=== PATIENT | female | born 1955 | race Caucasian/White ===

== ENCOUNTER 2018-05-05 08:22 | Inpatient (IN) ==
--- NOTE | 2018-04-16 10:10 | ANES ---
Anesthesia Pre Procedure Eval HOME MEDICATIONS Omeprazole [Prilosec Generic] 20 mg PO DAILY 02/10/13 [Last Taken Unknown] aspirin 81 mg tablet,delayed release 81 mg PO DAILY 04/09/18 [Last Taken Unknown ] levothyroxine 125 mcg tablet 125 mcg PO DAILY 04/09/18 [Last Taken Unknown] naproxen sodium 220 mg tablet 220 mg PO DAILY 04/09/18 [Last Taken Unknown] triamcinolone acetonide 0.1 % dental paste 1 applic DT TID PRN 04/09/18 [Last Taken Unknown] hydrochlorothiazide 25 mg tablet 25 mg PO DAILY 04/15/18 [Last Taken Unknown] Allergies/Adverse Reactions: Allergies Allergy/AdvReac Type Severity Reaction Status Date / Time Penicillins Allergy Unknown Verified 04/16/18 09:18 - Planned Procedure Planned Procedure: Left Arthroplasty Total Knee Medication List Reviewed:: Yes Allergies Verified: Yes Medical History (Last Reviewed 04/16/18 @ 10:05 by Derek Nevarez CRNA) Former tobacco use Hypertension Lives with spouse Rarely consumes alcohol Wears glasses Environmental allergies Onset Date: Unknown GERD (gastroesophageal reflux disease) Onset Date: Unknown Hypothyroidism Onset Date: Unknown Obesity Onset Date: Unknown Surgical History (Last Reviewed 04/16/18 @ 10:05 by Derek Nevarez CRNA) H/O colonoscopy Onset Date: ~2009 History of appendectomy Onset Date: ~1991 History of carpal tunnel release Onset Date: Unknown History of cholecystectomy Onset Date: ~1972 History of total abdominal hysterectomy Onset Date: ~1989 S/P bilateral foot surgery Onset Date: Unknown Family History (Last Reviewed 04/16/18 @ 10:05 by Derek Nevarez CRNA) Father Diabetes Mother Hypertension Polycythemia vera - Family Anesthesia History Family History:: no untoward family reactions to anesthesia, no familial bleeding tendencies, no family history of clotting disorders, no family history of premature - Airway/Neck/Teeth Within Normal Limits:: Yes Teeth Condition: Intact Neck Exam: non-tender, full range of motion, normal alignment Mallampatti Score: 2 Thyromental (T-M) distance: > 6 cm Mandibulo Hyoid distance: > 3 cm - Respiratory Respiratory: chest non-tender, lungs clear, normal breath sounds, no respiratory distress Smoking Status: Never smoker Sleep Apnea currently treated: No Sleep Apnea by current assessment: Yes - Some symptoms Discussed Risks/Treatment of KAYLIN: Yes - Cardiovascular Patient History - Cardiac/Respiratory: No pertinent hx, Sleep Apnea Tolerates Activity: Fair Heart Sounds: S1 & S2, Regular - Anesthesia Assessment and Plan ASA Class: PS, II Anesthesia Type Plan: Block - Adductor canal block for post op pain relief, Spinal Planned difficult intubation/equipment available: No
[~2018-05-05 08:22] MED LIST: MORPHINE SULFATE 15 MG TABLET.SA PO PRN; ROPIVACAINE HCL/PF 100 MG, EPINEPHrine 0.2 MG, KETOROLAC TROMETHAMINE 30 MG in NORMAL S... IJ PRN; TRANEXAMIC ACID 1,000 MG in NORMAL SALINE 100 ML IV PRN; ceFAZolin SODIUM 1 GM VIAL IV PRN
[2018-05-05] MEDS: RINGER'S SOLUTION,LACTATED 1,000 ML IV PRN ×2 (09:47→11:30)
[2018-05-05] MEDS ORDERED: diphenhydrAMINE HCL 50 MG/ML VIAL IV PRN (12:31)
[2018-05-05] MEDS ORDERED: ACETAMINOPHEN 500 MG TABLET PO PRN (12:31)
[2018-05-05] MEDS ORDERED: MAGNESIUM HYDROXIDE 30 ML UDC PO PRN (12:31)
[2018-05-05] MEDS ORDERED: MORPHINE SULFATE 2 MG/ML DISP.SYRIN IV PRN (12:31)
[2018-05-05] MEDS ORDERED: MAG HYDROX/ALUMINUM HYD/SIMETH 30 ML UDC PO PRN (12:31)
[2018-05-05] MEDS ORDERED: ZOLPIDEM TARTRATE 5 MG TABLET PO PRN (12:31)
[2018-05-05] MEDS ORDERED: DEXTROSE 5%-LACTATED RINGERS 1,000 ML IV PRN (12:31)
--- NOTE | 2018-05-05 12:31 | OR ---
Operative Report - Dictated Report Narrative: Date: 05/05/2018 Preoperative diagnosis: Left Knee degenerative joint disease. Postoperative diagnosis: Left Knee degenerative joint disease. Procedure: Left Total knee arthroplasty. Surgeon: Harry Liu M.D. Typewriter Ribbon Winder: Yannick Ascencio PA-C Anesthesia: Spinal with regional block and local periarticular joint injection. Complications: None Specimens: Bone for disposal. Estimated blood loss: Minimal. Tourniquet time: 78 Minutes at 325 millimeters of mercury. Retained implants: Depuy Attune size 4 narrow left lugged cemented posterior stabilized femoral component. Size 4 fixed-bearing cemented tibial platform. 4 by 5 millimeter posterior stabilized cross-linked tibial insert. 35 millimeter medialized patella button. Indications: Mrs. Walters is a 62-year-old female who has had long-standing left knee pain and arthrosis. This patient was followed in my clinic for period of time with significant complaints of left knee pain consistent with arthritic changes. She had failed conservative measures including, but not limited to, activity modification, passage of time, medications, and other conservative measures. Patient wished to proceed with surgical treatment. The risks, benefits, and alternatives were discussed in clinic. The risks of , blood clots, bleeding, infection, nerve/tendon blood vessel/ injury, malposition of components, intraoperative fracture, postoperative limited range of motion, persistent pain, failure of components, and need for additional procedures. Patient wished to proceed consent was obtained after answering all questions. Procedure: After marking the correct extremity on the floor, the patient was taken to the operating room. A timeout was performed. IV antibiotics consisting of Ancef were administered prior to the procedure. A regional followed by spinal anesthetic was induced by anesthesia, per my request, on the operative table with all bony prominences well-padded. Xiong catheter was placed, and a bump was placed under the operative side buttock. SCDs and CHUY hose were utilized on the nonoperative leg. A well-padded tourniquet was applied to the operative thigh. The operative leg was then pre-scrubbed with alcohol prepped, and draped in a standard sterile fashion. After exsanguinating the extremity with an Esmarch bandage, the tourniquet was inflated. After marking out the anterior knee for standard incision centered over the patella, the skin was incised and dissected down to the joint retinaculum. The joint retinaculum was marked out as well as the horizontal axis of the patella, and a standard medial parapatellar arthrotomy was then made. The most proximal aspect of the quadriceps tendon and the patella tendon insertion were protected from release. A partial synovectomy was performed as well as a resection of the infrapatellar fat pad. The distal femoral fat pad proximal to the trochlea was also resected using cautery. The soft tissues were elevated off the medial aspect of the proximal tibia using a Coto elevator ensuring that we did not transect the medial collateral ligament. Upon initial evaluation range of motion was approximately 0 degrees to 125 degrees of flexion. There were signs of advanced arthrosis in the medial and patellofemoral greater than lateral joint spaces. There were large marginal osteophytes which were removed with a rongeur. The knee was hyperflexed and the patella was tucked laterally. Protecting the surrounding soft tissues with Homans, an entry drill was placed down the femoral canal using Whitesides line for guidance into the entry point. The intramedullary femoral alignment marco was utilized in order to cut the distal femur in 5 degrees of valgus resecting 10 millimeters of bone. Next the distal femur was sized to a size 4. A posterior referencing guide was utilized to place the distal femoral cutting block in 3 degrees of external rotation. This was pinned into place. The rotation was confirmed both visually and based on anatomic landmarks. The 4 in 1 cutting jig of the appropriate size was utilized in order to make all bony cuts. The angle wing was used to ensure no notching. Retractors were utilized in order to protect surrounding soft tissues. This cut did not result in any excessive notching. We then cut the box centered over the distal femur. This allowed for resection of the anterior and posterior cruciate ligaments. I then turned my attention to the preparation of the tibia. Using an extra medullary tibial alignment marco, 4 millimeters of bone was resected off the medial articular surface. This was made perpendicular to the mechanical axis of the joint with the alignment marco centered over the ankle mortise. The alignment marco was checked and was noted to be parallel to the mechanical axis, centered over the medial one third of the tibial tubercle, paralleling the anterior surface of the tibia. We then turned our attention to the remaining meniscus and soft tissues. These were removed while protecting the surrounding ligaments and soft tissues. The marginal osteophytes off the anterior, posterior, medial, lateral aspects of the femur and tibia were removed. The tibia was sized out to a size 4. Next the tibia was drilled and punched in an externally rotated position. Next the trial femur and a series of tibial inserts were utilized in order to allow for full extension and maximal flexion. It was found that a 5 millimeter insert gave the best range of motion and stability at multiple flexion points as well as at full extension there was less than 2 mm of gapping both medially and laterally. There is minimal anterior translation with the knee at 90 degrees of flexion and no signs of being able to dislocate the knee. The patella was then prepared. The initial thickness was 22 millimeters. This was reamed down to 12 millimeters parallel to the anterior surface of the patella. It was sized out to a size 35 medialized patella button. This was then drilled and trialed. Without any medial restraint the patella tracked appropriately and did not sublux or dislocate. At this point, it was felt these were the appropriate sized implants, and all trials were removed. The standard periarticular joint injection consisting of ropivacaine, Toradol, and epinephrine were injected into the periarticular joint tissues. The bony surfaces were thoroughly irrigated with a pulsatile- suction saline irrigation device. A bone plug from the prior resected anterior chamfer cut was placed into the drill hole at the distal femur. The bony surfaces were then dried in preparation for placement of the implants. The cement was vacuum mixed per the sonar technician's instructions. The cement was placed on the dry bony surfaces and posterior aspect of the implants. The implants were impacted into place, removing all extruded cement. At this point anesthesia administered tranexamic acid per protocol intravenously. The knee was placed in extension with axial loading with the trial insert while the cement cured. Once the cement cured, all remaining extruded cement was removed. The knee was placed through a range of motion with the trial insert to ensure appropriate range of motion and stability. Final range of motion was approximately 0 to 125 degrees. The knee was again thoroughly irrigated with pulsatile saline lavage. The final polyethylene insert was then impacted into place ensuring no retained soft tissues. The remaining periarticular joint injection was injected. A medium Hemovac drain was placed exiting superior laterally. The knee was then placed over a triangle and the arthrotomy was closed with interrupted #1 Vicryl after thoroughly irrigating the joint. The deep and subcutaneous tissues were closed with interrupted 0 and 3-0 Vicryl respectively. Skin was closed with a running subcutaneous 3-0 Monocryl and Prineo Dermabond dressing. 4 x 4's, Sof-Rol, and a full leg Kevin wrap were applied. All sponge, needle, blade, and instrument counts were correct prior to closing the wounds. Postoperative condition: The patient was awoken and transferred to the postanesthesia care unit in stable condition. Plan is to be admitted to the inpatient medical/surgical floor postoperatively for 24 hours of IV antibiotics , physical therapy, occupational therapy, and medical comanagement. Patient will be weightbearing as tolerated with range of motion as tolerated. DVT prophylaxis will be with SCDs, CHUY hose, and pharmacological anticoagulation. Anticipated hospital stay is approximately 1-3 days.
[2018-05-05] MEDS ORDERED: TRIAMCINOLONE ACETONIDE 5 APPL TUBE DT PRN (12:33)
--- NOTE | 2018-05-05 12:53 | ANES ---
Post Anesthesia Discharge - Transfer of Care Transfer of Care handoff given to nurse: Yes - Discharge from PACU Discharge from PACU when meets criteria: Yes - Discharge to ASU Discharge to ASU-no complications/pt stable: Yes
--- NOTE | 2018-05-05 12:55 | ANES ---
Anesthesia Procedure Note Procedure Note: ANESTHESIA PROCEDURE NOTE Date of Procedure: 05/05/2018. Time of procedure: 1040. Performed by: Duncan Núñez CRNA Silk Screen Operator: None. Preprocedure diagnosis: Left knee degenerative joint disease. Post procedure diagnosis: Same. Procedure: Left ultrasound guided adductor canal block for postoperative analgesia. Indications: The patient is a 62 -year-old female, requesting left ultrasound- guided at her [facility] block for postoperative analgesia related to right total knee arthroplasty. Findings: See below. Details of the procedure: The tissue over the intended target site was cleansed with ChloraPrepand draped in a sterile fashion. 2 ml Lidocaine 1 % was infiltrated to the skin and subcutaneous tissue at the intended target site. Under sterile technique and ultrasound guidance a 18-gauge Tuohy needle was inserted through the left sartorius muscle to the saphenous nerve just anterior and medial to the superficial femoral artery and vein. 15 mL's of 0.5% bupivacaine was injected after negative aspiration for blood. Needle tip and spread of local anesthetic surrounding the saphenous nerve was observed throughout the injection with real time ultrasound visualization. The Tuohy needle was then removed intact. No complications were noted. The images were retained in the Hospital medical database . EBL: Minimal. Fluids: N/A. Specimen: N/A. Post procedure condition: The patient tolerated the procedure well. No complications were noted. Thank you for this consultation. Duncan Núñez CRNA
[2018-05-05] MEDS: ceFAZolin SODIUM 1 GM in DEXTROSE 5 % IN WATER 50 ML IV SCH ×4 (13:35→20:41)
[2018-05-05] MEDS: KETOROLAC TROMETHAMINE 15 MG/ML VIAL IV SCH ×2 (13:35→18:38)
--- NOTE | 2018-05-05 13:41 | ANES ---
Post Anesthesia Assessment - Vital Signs Vitals: Last Vital Signs Temp 36.5 C 05/05/18 13:10 Pulse 85 05/05/18 13:10 Resp 18 05/05/18 13:10 BP 117/53 05/05/18 13:10 Pulse Ox 98 05/05/18 13:10 Airway Patency: Normal - Mental Status Level Of Consciousness: Awake - Pain Level Pain Score: 0 - N/V Assessment Nausea/Vomiting Presence: None Dehydration:: No
[2018-05-05] MEDS: MORPHINE SULFATE 15 MG TABLET.SA PO SCH (20:41)
[2018-05-05] MEDS: oxyCODONE HCL/ACETAMINOPHEN 1 TAB TABLET PO PRN (20:57)
[2018-05-05] MEDS ORDERED: SENNOSIDES/DOCUSATE SODIUM 1 TAB TABLET PO SCH (21:00)
[2018-05-06] MEDS: KETOROLAC TROMETHAMINE 15 MG/ML VIAL IV SCH ×3 (00:35→12:10)
[2018-05-06] MEDS: oxyCODONE HCL/ACETAMINOPHEN 1 TAB TABLET PO PRN ×2 (00:59→05:04)
[2018-05-06] MEDS: ceFAZolin SODIUM 1 GM in DEXTROSE 5 % IN WATER 50 ML IV SCH ×2 (02:35)
[2018-05-06 05:19] LABS: Hematocrit 35.7 % (37.0-47.0); Hemoglobin 11.9 gm/dL (12.5-16.0); Mean Cell Volume 91.5 fl (78-100); Mean Corpuscular Hemoglobin 30.5 pg (27-31); Mean Corpuscular Hgb Conc 33.3 g/dl (32-36); Mean Platelet Volume 9.2 fl (8-12.5); Platelet Count 244 K/mm3 (150-450); Red Cell Distribution Width 13.2 % (11.5-14.0); White Blood Count 9.2 K/mm3 (4.0-10.5)
[2018-05-06 05:38] LABS: BUN/Creatinine Ratio 12.5 (9.0-21.6); Calcium * 8.5 mg/dL (7.9-10.9); Carbon Dioxide 29.6 mmol/L (24-32.6); Estimated Creat Clear 61.8; Potassium 3.6 mmol/L (3.4-4.6)
[2018-05-06] MEDS ORDERED: LEVOTHYROXINE SODIUM 125 MCG TABLET PO SCH (07:00)
[2018-05-06] MEDS: ONDANSETRON HCL/PF 2 MG/ML VIAL IV PRN ×2 (08:36→12:39)
[2018-05-06] MEDS ORDERED: PANTOPRAZOLE SODIUM 20 MG TABLET.DR PO SCH (09:00)
[2018-05-06] MEDS ORDERED: HYDROCHLOROTHIAZIDE 25 MG TABLET PO SCH (09:00)
[2018-05-06] MEDS: MORPHINE SULFATE 15 MG TABLET.SA PO SCH (10:18)
[2018-05-06] MEDS ORDERED: ENOXAPARIN SODIUM 40 MG/0.4 ML SYRG SC SCH (11:32)
[2018-05-06] MEDS ORDERED: ACETAMINOPHEN WITH CODEINE 1 EACH TABLET PO PRN (14:33)
--- NOTE | 2018-05-06 15:59 | DS ---
(1) S/P total knee arthroplasty Problem: Acute Qualifiers: Laterality: left Qualified Code(s): Z96.652 - Presence of left artificial knee joint (2) Acute blood loss anemia Problem: Acute (3) HTN (hypertension) Problem: Chronic (4) Hypothyroid Problem: Chronic (5) Obesity Problem: Chronic Qualifiers: Obesity classification: adult class 3 (BMI >= 40) Body mass index: BMI 40.0 -44.9 (6) GERD (gastroesophageal reflux disease) Problem: Chronic Description of Stay: Mrs. Walters was admitted to the floor after undergoing left total knee arthroplasty. Tolerated this well. Was admitted to the floor postoperatively for 24 hours of IV antibiotics, pain control, medical comanagement, and occupational and physical therapy. OT and PT were consulted to assist with activities of daily living and ambulation. Was made weightbearing as tolerated with range of motion as tolerated. Pain was initially controlled with IV regimen. This was transitioned to oral once tolerating a by mouth intake. Was resumed on home diet and medications. Had a Xiong catheter inserted and the operating room which was discontinued on postoperative day 1. A drain was placed intraoperatively into the knee which was discontinued on postoperative day 1. Lovenox SCD and CHUY hose were utilized for DVT prophylaxis. Vital signs remained stable to the hospital course. Serial labs were obtained which showed a final hemoglobin of 11.9 grams. BMP was reviewed and was stable. Physical examination throughout the hospital course showed an extremity that had sensation that was intact to light touch, palpable pulses, a benign wound, motor intact to the toes, ankle, and knee. Knee range of motion was approximately 5 degrees to 70 degrees. Once an oral pain regimen was tolerated and physical therapy goals were met, it was felt that they were stable for discharge to home. Instructions: Continue with weightbearing as tolerated and range of motion as tolerated. It is okay to shower and get the wound wet as long as there is no drainage from the wound. Do not bathe or soak the wound. If there is any drainage from the wound keep the wound clean and dry and cover with dry gauze and tape. Change every 2-3 days as needed if there is any drainage. Cover wound while showering if there is any drainage. Continue with physical therapy. Resume home diet. Report any fever over 101.5 Fahrenheit, uncontrolled pain, increased drainage, foul odor of drainage, new or increased calf pain or shortness of breath, or any other significant complaints. A 325mg dialy aspirin will be started after finishing anticoagulation if not allergic. Continue with CHUY hose on the operative extremity until instructed otherwise. No driving until instructed otherwise. Follow up in approximately 10-14 days. Procedures Performed: see notes below List Procedures: Left total knee arthroplasty Results and Findings: Lab Pending Results 05/06/18 05:16: WBC 9.2, RBC 3.90 L, Hgb 11.9 L, Hct 35.7 L, MCV 91.5, MCH 30.5 , MCHC 33.3, RDW 13.2, Plt Count 244, MPV 9.2 05/06/18 05:16: Sodium 135, Plasma Sodium 135, Potassium 3.6, Chloride 102, Carbon Dioxide 29.6, Anion Gap 7.0, BUN 10, Creatinine 0.80, Est GFR (Non-Af Amer) 77, BUN/Creatinine Ratio 12.5, Random Glucose 131 H, Calcium 8.5 Discharge Location: Home Disposition: Home self-care Condition: Good Discharge Activity: Activity as tolerated, Weight bearing Discharge Diet: General/regular food Referrals: Abbie Thompson, [employer] SANDING MACHINE OPERATOR [Family Provider] - Additional Patient Instructions (free text): Physical Therapy outpatient at [facility] rehab on 05/08 at 11:00am Follow up with Dr. Liu Ally05/27 at 10:45am. Prescriptions (Any new or edited meds): Acetaminophen with Codeine [Tylenol-Codeine 300 MG/30 MG] 2 each PO Q4H PRN #60 tablet PRN Reason: Mild Pain (Pain Scale 1-3) Enoxaparin Sodium [Lovenox] 40 mg SC Q24H #7 disp.syrin Morphine Sulfate [Ms Contin] 15 mg PO Q12H #20 tablet.sa Promethazine HCl [Phenergan (Promethazine)] 25 mg PO QID PRN #30 tab PRN Reason: nausea/vomiting Complete Home Medications List: Complete Home Medication List: Omeprazole [Prilosec] 20 mg PO DAILY 02/10/13 levothyroxine 125 mcg tablet 125 mcg PO DAILY 04/09/18 naproxen sodium 220 mg tablet 220 mg PO DAILY 04/09/18 triamcinolone acetonide 0.1 % dental paste 1 applic DT TID PRN 04/09/18 hydrochlorothiazide 25 mg tablet 25 mg PO DAILY 04/15/18 Acetaminophen with Codeine [Tylenol-Codeine 300 MG/30 MG] 2 each PO Q4H PRN #60 tablet 05/06/18 Enoxaparin Sodium [Lovenox] 40 mg SC Q24H #7 disp.syrin 05/06/18 Morphine Sulfate [Ms Contin] 15 mg PO Q12H #20 tablet.sa 05/06/18 Promethazine HCl [Phenergan (Promethazine)] 25 mg PO QID PRN #30 tab 05/06/18 Sennosides/Docusate Sodium [Senokot-S] 2 tab PO HS tablet 05/06/18 Amb Orders for Discharge: PT Evaluation and Treatment* Facility: [facility], Location: Rehabilitation Services
[2018-05-06 16:35] VITALS: BP 140/56
== END 2018-05-06 16:44 | disposition home or self-care (01) | DRG 470 ==
LOC: MS 08:22 → EDSTATUS 10:15
PROVIDERS: ADMIT Orthopaedic Surgery; ATTEND Orthopaedic Surgery
CPT/HCPCS: 36415; 73560; 80048; 85027; 97110; 97116; 97161; 97165; 97530; J2405

== ENCOUNTER 2020-11-28 10:23 | Observation (INO) ==
[~2020-11-28 10:23] MED LIST changes: +RINGER'S SOLUTION,LACTATED 1,000 ML IV PRN; -ROPIVACAINE HCL/PF 100 MG, EPINEPHrine 0.2 MG, KETOROLAC TROMETHAMINE 30 MG in NORMAL S... IJ PRN; +ROPIVACAINE/CLONIDIN/KETOROLAC 50 ML SYRINGE IJ PRN
[2020-11-28] MEDS ORDERED: BUPIVACAINE HCL/EPINEPHRINE 50 ML VIAL IJ ONE (11:09)
[2020-11-28] MEDS ORDERED: PROPOFOL VIAL IV ONE (11:09)
[2020-11-28] MEDS ORDERED: MIDAZOLAM HCL/PF 5 MG/ML VIAL ONE (11:09)
[2020-11-28] MEDS: RINGER'S SOLUTION,LACTATED 1,000 ML IV PRN ×2 (11:11→13:10)
--- NOTE | 2020-11-28 11:34 | ANES ---
Anesthesia Pre Procedure Eval Vitals/Labs: Last Vital Signs Temp 37.3 C 11/28/20 10:30 Pulse 81 11/28/20 10:30 Resp 18 11/28/20 10:30 BP 162/70 H 11/28/20 10:30 Pulse Ox 100 11/28/20 10:30 HOME MEDICATIONS aspirin 81 mg tablet,delayed release 81 mg PO DAILY 06/17/18 [Last Taken 05/20/19 06:00] hydrochlorothiazide 25 mg tablet 25 mg PO DAILY #90 tab 09/05/20 [Last Taken 11/28/20 08:00] levothyroxine 112 mcg tablet 112 mcg PO DAILY #90 tab 09/05/20 [Last Taken Unknown] metformin 500 mg tablet 500 mg PO DAILY #90 tab 09/05/20 [Last Taken Unknown] omeprazole 20 mg tablet,delayed release 20 mg PO DAILY #90 tab 09/05/20 [Last Taken Unknown] potassium chloride 10 mEq capsule,extended release 10 meq PO DAILY #90 cap 09/12/20 [Last Taken Unknown] glucosamine sulfate 1,000 mg capsule 2,000 mg PO DAILY cap 11/03/20 [Last Taken Unknown] Allergies/Adverse Reactions: Allergies Allergy/AdvReac Type Severity Reaction Status Date / Time Penicillins Allergy Unknown rash Verified 11/28/20 10:43 - Planned Procedure Planned Procedure: RT Arthroplasty Total Knee Medication List Reviewed:: Yes Allergies Verified: Yes Medical History (Last Reviewed 11/28/20 @ 11:32 by Derek Nevarez CRNA) HTN (hypertension) (Chronic) Hypothyroid (Chronic) Obesity (Chronic) GERD (gastroesophageal reflux disease) (Chronic) Former tobacco use quit at age 28 Hypertension Lives with spouse Rarely consumes alcohol Wears glasses Environmental allergies Onset Date: Unknown GERD (gastroesophageal reflux disease) Onset Date: Unknown Hypothyroidism Onset Date: Unknown Obesity Onset Date: Unknown Surgical History (Last Reviewed 11/28/20 @ 11:32 by Derek Nevarez CRNA) S/P total knee arthroplasty (Chronic) Left 05/05/18 [place] S/P right knee arthroscopy Onset Date: 05/27/19 partial medial and lateral meniscectomy, chondroplasty medial femoral condyle Status post left knee replacement Onset Date: 04/2018 H/O colonoscopy Onset Date: ~2009 Within normal limits History of appendectomy Onset Date: ~1991 History of carpal tunnel release Onset Date: Unknown Bilateral History of cholecystectomy Onset Date: ~1972 History of total abdominal hysterectomy Onset Date: ~1989 uterus removed only S/P bilateral foot surgery Onset Date: Unknown Family History (Last Reviewed 11/28/20 @ 11:32 by Derek Nevarez CRNA) Father , age 62 Diabetes Mother Polycythemia vera Hypertension Sister Alive and well - Family Anesthesia History Family History:: no untoward family reactions to anesthesia, no familial bleeding tendencies, no family history of clotting disorders, no family history of premature - Airway/Neck/Teeth Within Normal Limits:: Yes Teeth Condition: intact Neck Exam: full range of motion Mallampatti Score: 2 - Respiratory Respiratory Physical: lungs clear Smoking Status: Former smoker Sleep Apnea currently treated: No Sleep Apnea by current assessment: No - Cardiovascular Cardiac History: hypertension Tolerate Activity: Fair Heart Sounds: S1 & S2, Regular - Gastrointestinal NPO since: 0 - Anesthesia Assessment and Plan ASA Class: PS, II Anesthesia Type Plan: Block - Adductor canal block for post op pain relief, Spinal
[2020-11-28] MEDS ORDERED: ROPIVACAINE/CLONIDIN/KETOROLAC 50 ML SYRINGE IJ ONE (12:18)
[2020-11-28] MEDS ORDERED: ceFAZolin SODIUM 1 GM VIAL ONE (12:18)
[2020-11-28] MEDS ORDERED: MAGNESIUM HYDROXIDE 30 ML UDC PO PRN (13:49)
[2020-11-28] MEDS ORDERED: ACETAMINOPHEN 500 MG TABLET PO PRN (13:49)
[2020-11-28] MEDS ORDERED: ONDANSETRON HCL/PF 2 MG/ML VIAL IV PRN (13:49)
[2020-11-28] MEDS ORDERED: diphenhydrAMINE HCL 50 MG/ML VIAL IV PRN (13:49)
[2020-11-28] MEDS ORDERED: ZOLPIDEM TARTRATE 5 MG TABLET PO PRN (13:49)
[2020-11-28] MEDS ORDERED: MORPHINE SULFATE 2 MG/ML DISP.SYRIN IV PRN (13:49)
[2020-11-28] MEDS ORDERED: MAG HYDROX/ALUMINUM HYD/SIMETH 30 ML UDC PO PRN (13:49)
[2020-11-28] MEDS ORDERED: oxyCODONE HCL/ACETAMINOPHEN 1 TAB TABLET PO PRN (13:49)
[2020-11-28] MEDS ORDERED: DEXTROSE 5%-LACTATED RINGERS 1,000 ML IV PRN (13:49)
--- NOTE | 2020-11-28 13:49 | OR ---
Operative Report - Dictated Report Narrative: Date: 11/28/2020 Preoperative diagnosis: Left knee degenerative joint disease. Postoperative diagnosis: Left knee degenerative joint disease. Procedure: Left total knee arthroplasty. Surgeon: Harry Liu M.D. Fisher Trot Line: Yannick Ascencio PA-C (provided and essential set of skilled, educated hands that assisted with transfer, positioning, prepping, draping, manipulation, retraction, placement of jigs, injection, insertion of implants, irrigation, closure wounds, and dressings all of which could not be performed by the available surgical crew) Anesthesia: Spinal with regional block and local periarticular joint injection. Complications: None Specimens: Bone. Estimated blood loss: Minimal. Tourniquet time: 80 minutes at 350 millimeters of mercury. Retained implants: Depuy Attune size 4 left lugged cemented posterior stabilized femoral component. Size 4 fixed-bearing cemented tibial platform. 4 by 5 millimeter posterior stabilized cross-linked tibial insert. 35 millimeter medialized patella button. Indications: Mrs. Walters is a 65-year-old female who has had longstanding left knee pain and arthrosis. This patient was followed in my clinic for period of time with significant complaints of left knee pain consistent with arthritic changes. She had failed conservative measures including, but not limited to, activity modification, passage of time, medications, and other conservative measures. Patient wished to proceed with surgical treatment. The risks, benefits, and alternatives were discussed in clinic. The risks of , blood clots, bleeding, infection, nerve/tendon blood vessel/ injury, malposition of components, intraoperative fracture, postoperative limited range of motion, persistent pain, failure of components, and need for additional procedures. Patient wished to proceed consent was obtained after answering all questions. Procedure: After marking the correct extremity on the floor, the patient was taken to the operating room. A timeout was performed. IV antibiotics consisting of Ancef were administered prior to the procedure. A regional followed by spinal anesthetic was induced by anesthesia, per my request, on the operative table with all bony prominences well-padded. Xiong catheter was placed, and a bump was placed under the operative side buttock. SCDs and CHUY hose were utilized on the nonoperative leg. A well-padded tourniquet was applied to the operative thigh. The operative leg was then pre-scrubbed with alcohol, prepped, and draped in a standard sterile fashion. After exsanguinating the extremity with an Esmarch bandage, the tourniquet was inflated. After marking out the anterior knee for standard incision centered over the patella, the skin was incised and dissected down to the joint retinaculum. The joint retinaculum was marked out as well as the horizontal axis of the patella, and a standard medial parapatellar arthrotomy was then made. The most proximal aspect of the quadriceps tendon and the patella tendon insertion were protected from release. A partial synovectomy was performed as well as a resection of the infrapatellar fat pad. The distal femoral fat pad proximal to the trochlea was also resected using cautery. The soft tissues were elevated off the medial aspect of the proximal tibia using a Coto elevator ensuring that we did not transect the medial collateral ligament. Upon initial evaluation range of motion was approximately 0 degrees to 120 degrees of flexion. There were signs of advanced arthrosis in the medial and patellofemoral greater than lateral joint spaces. There were large marginal osteophytes which were removed with a rongeur. The knee was hyperflexed and the patella was tucked laterally. Protecting the surrounding soft tissues with Homans, an entry drill was placed down the femoral canal using Whitesides line for guidance into the entry point. The intramedullary femoral alignment marco was utilized in order to cut the distal femur in 5 degrees of valgus resecting 10 millimeters of bone. Next the distal femur was sized to a size 4. A posterior referencing guide was utilized to place the distal femoral cutting block in 3 degrees of external rotation. This was pinned into place. The rotation was confirmed both visually and based on anatomic landmarks. The 4 in 1 cutting jig of the appropriate size was utilized in order to make all bony cuts. The rolando wing was used to ensure no notching. Retractors were utilized in order to protect surrounding soft tissues. This cut did not result in any excessive notching. We then cut the box centered over the distal femur. This allowed for resection of the anterior and posterior cruciate ligaments. I then turned my attention to the preparation of the tibia. Using an extra medullary tibial alignment marco, 3 millimeters of bone was resected off the medial articular surface. This was made perpendicular to the mechanical axis of the joint with the alignment marco centered over the ankle mortise. The alignment marco was checked and was noted to be parallel to the mechanical axis, centered over the medial one third of the tibial tubercle, paralleling the anterior surface of the tibia. We then turned our attention to the remaining meniscus and soft tissues. These were removed while protecting the surrounding ligaments and soft tissues. The marginal osteophytes off the anterior, posterior, medial, lateral aspects of the femur and tibia were removed. The tibia was sized out to a size 4. Next the tibia was drilled and punched in an externally rotated position. Next the trial femur and a series of tibial inserts were utilized in order to allow for full extension and maximal flexion. It was found that a 5 millimeter insert gave the best range of motion and stability at multiple flexion points as well as at full extension there was less than 2 mm of gapping both medially and laterally. There is minimal anterior translation with the knee at 90 degrees of flexion and no signs of being able to dislocate the knee. The patella was then prepared. The initial thickness was 20 millimeters. This was reamed down to 11 millimeters parallel to the anterior surface of the patella. It was sized out to a size 35 medialized patella button. This was then drilled and trialed. Without any medial restraint the patella tracked appropriately and did not sublux or dislocate. At this point, it was felt these were the appropriate sized implants, and all trials were removed. The standard periarticular joint injection consisting of ropivacaine, Toradol, and epinephrine were injected into the periarticular joint tissues. The bony surfaces were thoroughly irrigated with a pulsatile-suction saline irrigation device. A bone plug from the prior resected anterior chamfer cut was placed into the drill hole at the distal femur. The bony surfaces were then dried in preparation for placement of the implants. The cement was vacuum mixed per the mechanical engineering technician's instructions. The cement was placed on the dry bony surfaces and posterior aspect of the implants. The implants were impacted into place, removing all extruded cement. At this point anesthesia administered tranexamic acid per protocol intravenously. The knee was placed in extension with axial loading with the trial insert while the cement cured. Once the cement cured, all remaining extruded cement was removed. The knee was placed through a range of motion with the trial insert to ensure appropriate range of motion and stability. Final range of motion was approximately 0 to 120 degrees. The knee was again thoroughly irrigated with pulsatile saline lavage. The final polyethylene insert was then impacted into place ensuring no retained soft tissues. The remaining periarticular joint injection was injected. A medium Hemovac drain was placed exiting superior laterally. The knee was then placed over a triangle and the arthrotomy was closed with interrupted #1 Vicryl after thoroughly irrigating the joint. The deep and subcutaneous tissues were closed with interrupted 0 and 3-0 Vicryl respectively. Skin was closed with a running subcutaneous 3-0 Monocryl and Prineo Dermabond dressing. 4 x 4's, Sof-Rol, and a full leg Kevin wrap were applied. All sponge, needle, blade, and instrument counts were correct prior to closing the wounds. Postoperative condition: The patient was awoken and transferred to the postanesthesia care unit in stable condition. Plan is to be admitted to the inpatient medical/surgical floor postoperatively for 24 hours of IV antibiotics, physical therapy, occupational therapy, and medical comanagement. Patient will be weightbearing as tolerated with range of motion as tolerated. DVT prophylaxis will be with SCDs, CHUY hose, and pharmacological anticoagulation. Anticipated hospital stay is approximately 1-3 days.
[2020-11-28] MEDS ORDERED: RINGER'S SOLUTION,LACTATED 1,000 ML IV PRN (13:52)
--- NOTE | 2020-11-28 14:12 | ANES ---
Anesthesia Procedure Note Procedure Note: ANESTHESIA PROCEDURE NOTE Date of Procedure: 11/28/2020 Time of procedure: 12:15 PM. Performed by: RADHA Rodriguez CRNA, MSN Lead Shop Operator: Irma Jarrell RN. Preprocedure diagnosis: Post right total knee arthroplasty pain. Post procedure diagnosis: Same. Procedure: Right adductor Canal Block. Indications: Post right total knee arthroplasty pain relief. Findings: See below. Details of the procedure: The patient was brought to OR #4 and placed in supine position. The patient's right femoral area to the knee was prepped with chlorhexidine and using ultrasound guidance the right femoral artery and nerve was identified and then followed to the level of the adductor canal. Lidocaine 1% was infiltrated to the skin of the intended injection site. Under ultrasound guidance the saphenous nerve was approached with visualization of a 4 inch shielded block needle. Once saphenous nerve was identified with proximity to the needle tip, the saphenous nerve was surrounded with 25 mL bupivacaine 0.25% with 1-200,000 epinephrine. Please see radiology/ultrasound report for details and retained images of the procedure. EBL: 0 Fluids: N/A. Specimen: N/A. Post procedure condition: The patient tolerated the procedure well. No complications were noted. Thank you for this consultation. Derek Nevarez CRNA, ARNP, MSN
--- NOTE | 2020-11-28 14:14 | ANES ---
Post Anesthesia Discharge - Transfer of Care Transfer of Care handoff given to nurse: Yes - Discharge from PACU Discharge from PACU when meets criteria: Yes - Alert and comfortable.
[2020-11-28] MEDS: ceFAZolin SODIUM 1 GM in DEXTROSE 5 % IN WATER 100 ML IV SCH ×4 (15:59→21:16)
[2020-11-28] MEDS: KETOROLAC TROMETHAMINE 15 MG/ML VIAL IV SCH ×2 (15:59→21:15)
[2020-11-28] MEDS ORDERED: SENNOSIDES/DOCUSATE SODIUM 1 TAB TABLET PO SCH (21:00)
[2020-11-28] MEDS: MORPHINE SULFATE 15 MG TABLET.SA PO SCH (21:15)
[2020-11-29] MEDS: KETOROLAC TROMETHAMINE 15 MG/ML VIAL IV SCH ×2 (03:02→08:29)
[2020-11-29] MEDS: ceFAZolin SODIUM 1 GM in DEXTROSE 5 % IN WATER 100 ML IV SCH ×2 (03:03)
[2020-11-29 06:30] LABS: Hematocrit 34.7 % (37.0-47.0); Mean Cell Volume 86.1 fl (78-100); Mean Corpuscular Hemoglobin 27.3 pg (27-31); Mean Corpuscular Hgb Conc 31.7 g/dl (32-36); Mean Platelet Volume 8.9 fl (8-12.5); Platelet Count 246 K/mm3 (150-450); Red Blood Count 4.03 M/mm3 (4.2-5.4); Red Cell Distribution Width 15.9 % (11.5-14.0)
[2020-11-29 06:39] LABS: Anion Gap 9.9 mmol/L (6.8-13.8); BUN/Creatinine Ratio 17.9 (9.0-21.6); Calcium * 8.8 mg/dL (7.9-10.9); Carbon Dioxide 27.7 mmol/L (24-32.6); Estimated Creat Clear 49.6; Potassium 3.6 mmol/L (3.4-4.6)
[2020-11-29] MEDS ORDERED: PANTOPRAZOLE SODIUM 20 MG TABLET.DR PO SCH (07:00)
[2020-11-29] MEDS ORDERED: LEVOTHYROXINE SODIUM 112 MCG TABLET PO SCH (07:00)
[2020-11-29] MEDS: MORPHINE SULFATE 15 MG TABLET.SA PO SCH (08:28)
--- NOTE | 2020-11-29 08:50 | DS ---
(1) GERD (gastroesophageal reflux disease) Problem: Chronic (2) HTN (hypertension) Problem: Chronic Qualifiers: (3) Hypothyroid Problem: Chronic Qualifiers: (4) Obesity Problem: Chronic (5) S/P total knee arthroplasty Problem: Acute Qualifiers: Laterality: right Qualified Code(s): Z96.651 - Presence of right artificial knee joint Date of Discharge:: 11/29/20 Hospital Course: Mrs. Walters was admitted to the floor after undergoing right total knee arthroplasty. Tolerated this well. Was admitted to the floor postoperatively for 24 hours of IV antibiotics, pain control, medical comanagement, and occupational and physical therapy. OT and PT were consulted to assist with activities of daily living and ambulation. Was made weightbearing as tolerated with range of motion as tolerated. Pain was initially controlled with IV paul men. This was transitioned to oral once tolerating a by mouth intake. Was resumed on home diet and medications. A Xiong catheter was inserted in the operating room which was discontinued by postoperative day 1. A drain was placed intraoperatively into the knee which was discontinued on postoperative day 1. Lovenox, SCDs, and CHUY hose were utilized for DVT prophylaxis. Vital signs remained stable to the hospital course. Labs were obtained which showed a final hemoglobin of 11.0 grams. BMP was reviewed and was stable. Physical examination throughout the hospital course showed an extremity that had sensation that was intact to light touch, palpable pulses, a benign wound, motor intact to the toes, ankle, and knee. Knee range of motion was approximately 5 degrees to 60 degrees. Once an oral pain regimen was tolerated and physical therapy goals were met, it was felt that they were stable for discharge to home. Instructions: Continue with weightbearing as tolerated and range of motion as tolerated. It is okay to shower and get the wound wet as long as there is no drainage from the wound. Do not bathe or soak the wound. If there is any drainage from the wound keep the wound clean and dry and cover with dry gauze and tape. Change every 2- 3 days as needed if there is any drainage. Cover wound while showering if there is any drainage. Continue with physical therapy. Resume home diet. Report any fever over 101.5 Fahrenheit, uncontrolled pain, increased drainage, foul odor of drainage, new or increased calf pain or shortness of breath, or any other significant complaints. A 325mg daily aspirin will be started after finishing anticoagulation if not allergic. Continue with CHUY hose on the operative extremity until instructed otherwise. No driving until instructed otherwise. Follow up in approximately 2-3 weeks. Procedures Performed: see notes below List Procedures: Right total knee arthroplasty Results and Findings: Lab Pending Results 11/29/20 06:10: WBC 9.0, RBC 4.03 L, Hgb 11.0 L, Hct 34.7 L, MCV 86.1, MCH 27.3, MCHC 31.7 L, RDW 15.9 H, Plt Count 246, MPV 8.9 11/29/20 06:10: Sodium 136, Plasma Sodium 137, Potassium 3.6, Chloride 102, Carbon Dioxide 27.7, Anion Gap 9.9, BUN 17, Creatinine 0.95, Est GFR (Non-Af Amer) 62, BUN/Creatinine Ratio 17.9, Random Glucose 144 H, Calcium 8.8 Disposition: Home self-care Condition: Good Discharge Activity: Activity as tolerated, Weight bearing Discharge Diet: General/regular food Referrals: Sherry Cameron FNP [Primary Care Provider] - Additional Patient Instructions (free text): Physical Therapy at [facility] outpatient rehab department on SaturdayNovember 30 at 1:15pm. Follow up [facility] Orthopedic office appointment on SaturdayDecember 20 at 10:30am. Prescriptions (Any new or edited meds): Enoxaparin Sodium [Lovenox] 40 mg SC Q24H #7 disp.syrin Transmission Status: Pending to [facility] Morphine Sulfate [Ms Contin] 15 mg PO Q12H #10 tablet.sa Transmission Status: Sent to [facility] oxyCODONE HCL/ACETAMINOPHEN [Percocet 5 MG/325 MG] 1 - 2 tab PO Q4H PRN #50 tab PRN Reason: Moderate Pain (Pain Scale 4-6) Transmission Status: Sent to [facility] Sennosides/Docusate Sodium [Senokot-S] 2 tab PO HS #60 tab Transmission Status: Pending to [facility] Complete Home Medications List: Complete Home Medication List: aspirin 81 mg tablet,delayed release 81 mg PO DAILY 06/17/18 hydrochlorothiazide 25 mg tablet 25 mg PO DAILY #90 tab 09/05/20 levothyroxine 112 mcg tablet 112 mcg PO DAILY #90 tab 09/05/20 metformin 500 mg tablet 500 mg PO DAILY #90 tab 09/05/20 omeprazole 20 mg tablet,delayed release 20 mg PO DAILY #90 tab 09/05/20 potassium chloride 10 mEq capsule,extended release 10 meq PO DAILY #90 cap 09/12/20 glucosamine sulfate 1,000 mg capsule 2,000 mg PO DAILY cap 11/03/20 Enoxaparin Sodium [Lovenox] 40 mg SC Q24H #7 disp.syrin 11/29/20 Morphine Sulfate [Ms Contin] 15 mg PO Q12H #10 tablet.sa 11/29/20 Sennosides/Docusate Sodium [Senokot-S] 2 tab PO HS #60 tab 11/29/20 oxyCODONE HCL/ACETAMINOPHEN [Percocet 5 MG/325 MG] 1 - 2 tab PO Q4H PRN #50 tab 11/29/20 Amb Orders for Discharge: PT Evaluation and Treatment* Facility: [facility], Location: Rehabilitation Services Forms: Patient Portal Registration
[2020-11-29] MEDS ORDERED: POTASSIUM CHLORIDE 10 MEQ TABLET.SA PO SCH (09:00)
[2020-11-29] MEDS ORDERED: metFORMIN HCL 500 MG TABLET PO SCH (09:00)
[2020-11-29] MEDS ORDERED: HYDROCHLOROTHIAZIDE 25 MG TABLET PO SCH (09:00)
[2020-11-29] MEDS: ENOXAPARIN SODIUM 40 MG/0.4 ML SYRG SC SCH ×2 (10:26→12:54)
[2020-11-29 12:54] VITALS: BP 141/73
== END 2020-11-29 12:18 | disposition home or self-care (01) ==
LOC: SUR 10:23 → MS 10:23
PROVIDERS: ADMIT Orthopaedic Surgery; ATTEND Orthopaedic Surgery